=== PATIENT | male | born 1975 | race Caucasian/White ===

== ENCOUNTER 2016-03-24 07:54 | Outpatient (CLI) | payer MEDICAID ==
[~2016-03-24] VITALS: Ht 188 cm; Wt 118.2 kg
--- NOTE | ~2016-03-24 | HEMODYNAMI ---
PATIENT:ANDREA GREEN MEDICAL RECORD: [id number] : 79 LOCATION:DFRANSICO ADMISSION DATE: 03/24/16 Generatedon:03/24/201611:12 Patient name: ANDREA GREEN Patient #: [id number] SSN: [id number] : 1975 Date of study: 03/24/2016 Page: Of Hemodynamic Procedure Report Patient Data Patient Demographics Procedure consent was obtained First Name: ANDREA Gender: Male Last Name: PETER : 1975 Middle Initial: L Age: 40 year(s) Patient #: [id number] Race: Unknown SSN: [id number] Additional ID: [id number] Contact details Address: [address] [place] [address] State: [place]: [facility] [place] Zip code: [address] Past Medical History Allergies: No known allergies Admission Admission Data Admission Date: 03/24/2016 Admission Time: 7:54 Arrival Date: 03/24/2016 Arrival Time: 0:00 Admit Source: Other Insurance Payor: Private health insurance Height (in.): 72 BSA: 2.48 (m2) Height (cm.): 182.88 BMI: 38.92 (kg/m2) Weight (lbs.): 287 Weight (kg.): 130.18 Lab Results Lab Result Date: 03/24/2016 Lab Result Time: 0:00 Biochemistry Name Units Result Min Max BUN mg/dl 11 --(-*--)-- 7 18 Creatinine mg/dl 0.8 --(-*--)-- 0.6 1.3 CBC Name Units Result Min Max Hemoglobin g/dl 17 --(---*)-- 13.5 17.5 Procedure Procedure Types Cath Procedure Diagnostic Procedure LHC LHC w/Coronaries Procedure Description Procedure Date Procedure Date: 03/24/2016 Procedure Start Time: 11:02 Procedure End Time: 11:11 Procedure Staff Name Function Don Chavis MD Performing Physician Consuelo Richard RT Scrub Luisa Ward RN Nurse Pedrito Rios RT Refractive Surgeon Luz Putnam RT Monitor Procedure Data Cath Procedure Fluoroscopy Diagnostic fluoroscopy Total fluoroscopy Time: 2.6 time: 2.6 min min Diagnostic fluoroscopy Total fluoroscopy dose: dose: 200.14 mGy 200.14 mGy Contrast Material Contrast Material Type Amount (ml) Isovue 300 51 Entry Location Entry Primary Successful Side Size Upsize Upsize Entry Closure Miller ccessful Closure Location (Fr) 1 (Fr) 2 (Fr) Remarks Device Remarks Radial Right 6 Fr Mechanical artery Short Compression Estimated blood loss: 10 ml Diagnostic catheters Device Type Used For End Catheter Placement Terumo 5Fr [place] 110cm Procedure catheter Procedure Complications No complications Procedure Medications Medication Administration Route Dosage Oxygen NC 2 l/min Heparin Flush Bag added to field 2 bags (1000units/500ml NS) Lidocaine 2% added to field 20 Radial Cocktail added to field 1 syringe (Verapomil 2mg/Nitro 400mcg/Heparin 1500units) Versed I.V. 1 mg Fentanyl I.V. 50 mcg Versed I.V. 1 mg Fentanyl I.V. 50 mcg Versed I.V. 1 mg Fentanyl I.V. 50 mcg Versed I.V. 1 mg Fentanyl I.V. 50 mcg Radial Cocktail I.A. 1 syringe (Verapomil 2mg/Nitro 400mcg/Heparin 1500units) Versed I.V. 1 mg Fentanyl I.V. 50 mcg Versed I.V. 1 mg Fentanyl I.V. 50 mcg Fentanyl I.V. 50 mcg Hemodynamics Rest BSA: 2.48 (m2) HGB: 17 (g/dl) O2 Consumption: Estimated: 329.2 (ml/min) O2 Consu mption indexed: Estimated:132.74 (ml/min/m) Heart Rate: 96 (bpm) Snapshots Pre Cath Intra NCS Post Cath Vital Signs Time Heart Resp SPO2 NIBP (mmHg) Rhythm Pain Sedation Rate (ipm) (%) Status Level (bpm) 10:43:53 94 21 98 125/87(104) NSR 0 (11) 10(A) , No pain 10:48:18 97 25 98 127/75(103) NSR 0 (11) 10(A) , No pain 10:52:42 96 16 96 120/79(96) NSR 0 (11) 10(A) , No pain 10:57:08 98 16 95 117/66(87) NSR 0 (11) 10(A) , No pain 11:01:33 107 16 95 102/66(89) NSR 0 (11) 10(A) , No pain 11:05:57 106 16 95 94/53(74) NSR 0 (11) 10(A) , No pain 11:10:13 110 17 96 102/59(87) NSR 0 (11) 10(A) , No pain Medications Time Medication Route Dose Verified Delivered Reason Notes Effectiveness by by 10:45:44 Oxygen NC 2 l/min Don Luisa Per Partha Ward RN physician 10:45:53 Heparin Flush added 2 bags Don Don used for Bag to Partha Chavis MD procedure (1000units/500ml field NS) 10:46:00 Lidocaine 2% added 20ml Dondelfina Ochoa used for to vial Partha Chavis MD procedure field 10:46:06 Radial Cocktail added 1 Don Don used for (Verapomil to syringe Partha Chavis MD procedure 2mg/Nitro field 400mcg/Heparin 1500units) 10:51:43 Versed I.V. 1 mg Don Luisa for sedation Partha Ward RN 10:51:48 Fentanyl I.V. 50 mcg Don Luisa for sedation Partha Ward RN 10:53:50 Versed I.V. 1 mg Don Luisa for sedation Partha Ward RN 10:53:52 Fentanyl I.V. 50 mcg Don Luisa for sedation Partha Ward RN 10:56:28 Versed I.V. 1 mg Don Luisa for sedation Partha Ward RN 10:56:40 Fentanyl I.V. 50 mcg Don Luisa for sedation Partha Ward RN 10:58:54 Versed I.V. 1 mg Don Luisa for sedation Partha Ward RN 10:58:57 Fentanyl I.V. 50 mcg Don Luisa for sedation Partha Ward RN 11:00:06 Versed I.V. 1 mg Don Luisa for sedation Partha Ward RN 11:00:13 Fentanyl I.V. 50 mcg Don Luisa for sedation Partha Ward RN 11:02:09 Radial Cocktail I.A. 1 Don Ochoa for (Verapomil syringe Partha Chavis MD vasodilation 2mg/Nitro 400mcg/Heparin 1500units) 11:03:38 Versed I.V. 1 mg Don Luisa for sedation Partha Ward RN 11:03:40 Fentanyl I.V. 50 mcg Don Luisa for sedation Partha Ward RN 11:05:44 Fentanyl I.V. 50 mcg Don Luisa for sedation Partha Ward glove cutter Log Time Note 10:29:55 Patient Height : 182.88 inches 10:30:03 Patient Weight : 130.18 lbs 10:30:03 Admit Source: Other 10:30:20 Insurance Payor : Private health insurance 10:30:22 Arrival Date: 03/24/2016 12:00:00 AM 10:31:07 Diagnostic Cath Status : Elective 10:32:11 Pedrito ADAME(R) sent for patient. Start room use. 10:32:13 Time tracking: Regular hours 10:32:23 Plan of Care:Hemodynamics will remain stable., Cardiac rhythm will remain stable., Comfort level will be maintained., Respiratory function will remain adequate., Patient/ family verbilizes understanding of procedure., Procedure tolerated without complication., Recovers from procedure without complications.. 10:32:40 Patient received from Outpatients to [facility] 3 Alert and oriented. Tansferred to table in Supine position. 10:32:42 Warm blankets applied, and katie hugger turned on for patient comfort. 10:32:43 Correct patient and procedure confirmed by team. 10:32:45 Signed procedure consent form obtained from patient. 10:34:51 Lab Result : Hemoglobin 17 g/dl 10:34:51 Lab Result : Creatinine 0.8 mg/dl 10:34:51 Lab Result : BUN 11 mg/dl 10:40:14 H&P Date Dictated: 03/03/2016 Within 30 days and on chart., H&P Addendum completed by physician on day of procedure. (MUST COMPLETE FOR ALL OUTPATIENTS). 10:40:19 Family in waiting room. 10:40:22 Patient NPO since Midnight. 10:40:38 Patient allergic to No known allergies 10:40:43 Is patient on blood thinner?Yes 10:40:46 ACC The patient was administered the following blood thiners within the last 24 hours: ACCPlavix 10:42:37 Vital chart was started 10:44:45 Baseline sample Acquired. 10:44:48 Rhythm: sinus rhythm 10:44:50 Full Disclosure recording started 10:44:51 Pre-procedure instructions explained to patient. 10:44:52 Pre-op teaching completed and patient verbalized understanding. 10:44:55 Is the patient allergic to Iodine/contrast media? No. 10:44:59 Patient diabetic? No. 10:45:03 Previous problem with sedation/anesthesia? No ? 10:45:05 Snore? Yes 10:45:06 Sleep apnea? No 10:45:07 Deviated septum? No 10:45:08 Opens mouth fully? Yes 10:45:09 Sticks out tongue? Yes 10:45:11 Airway obstruction? No ? 10:45:14 Dentures? No ? 10:45:17 Pre procedure: right dorsailis pedis pulse 2+ Normal; easily identifiable; not easily obliterated 10:45:20 Modified Irving's test Ulnar < 7 seconds 10:45:22 Patient pain scale 0/10 ?. 10:45:27 IV patent on arrival in left hand with 0.9% NaCl at [facility]. 10:45:31 Lab results completed and on chart. 10:45:35 Right Radial & Right Groin area was prepped with chlora-prep and draped in sterile fashion 10:45:35 Alarms reviewed by R. N. 10:45:36 Sharps counted by scrub and verified by R.N. 10:45:38 Use device set Radial Dx 10:45:40 Acist Syringe opened to sterile field. 10:45:40 Cardinal Cath Pack opened to sterile field. 10:45:40 Bag Decanter opened to sterile field. 10:45:41 Terumo 6Fr Slender Glidesheath opened to sterile field. 10:45:41 St Wilfredo 260cm J .035 wire opened to sterile field. 10:45:42 Acist Hand Control opened to sterile field. 10:45:42 Acist Manifold opened to sterile field. 10:45:43 Tegaderm 4 x 4 opened to sterile field. 10:45:44 Oxygen 2 l/min NC was given by Luisa Ward RN; Per physician; 10:45:53 Heparin Flush Bag (1000units/500ml NS) 2 bags added to field was given by Don Chavis MD; used for procedure; 10:46:00 Lidocaine 2% 20ml vial added to field was given by Don Chavis MD; used for procedure; 10:46:06 Radial Cocktail (Verapomil 2mg/Nitro 400mcg/Heparin 1500units) 1 syringe added to field was given by Don Chavis MD; used for procedure; 10:49:53 Physician paged 10:51:09 Physician arrived 10:51:10 --------ALL STOP TIME OUT------ 10:51:12 Final Timeout: patient, procedure, and site verified with staff and physician. All members of the team are in agreement. 10:51:15 Right Radial & Right Groin site verified by team. 10:51:20 Physical assessment completed. ASA score P 2 - A patient with mild systemic disease as per Don Chavis MD. 10:51:30 Sedation plan: IV Moderate Sedation Versed, Fentanyl 10:51:43 Versed 1 mg I.V. was given by Luisa Ward RN; for sedation; 10:51:48 Fentanyl 50 mcg I.V. was given by Luisa Ward RN; for sedation; 10:53:50 Versed 1 mg I.V. was given by Luisa Ward RN; for sedation; 10:53:52 Fentanyl 50 mcg I.V. was given by Luisa Ward RN; for sedation; 10:56:28 Versed 1 mg I.V. was given by Luisa Ward RN; for sedation; 10:56:40 Fentanyl 50 mcg I.V. was given by Luisa Ward RN; for sedation; 10:58:54 Versed 1 mg I.V. was given by Luisa Ward RN; for sedation; 10:58:57 Fentanyl 50 mcg I.V. was given by Luisa Ward RN; for sedation; 11:00:06 Versed 1 mg I.V. was given by Luisa Ward RN; for sedation; 11:00:13 Fentanyl 50 mcg I.V. was given by Luisa Ward RN; for sedation; 11:01:54 Procedure started. 11:02:07 Local anesthetic to right radial artery with Lidocaine 2% by Don Chavis MD.INITIAL ACCESS ONLY 11:02:09 Radial Cocktail (Verapomil 2mg/Nitro 400mcg/Heparin 1500units) 1 syringe I.A. was given by Don Chavis MD; for vasodilation; 11:02:17 A 6 Fr Short sheath was inserted into the Right Radial artery 11:03:10 J wire advanced. 11:03:36 LV angiography performed. 11:03:38 Versed 1 mg I.V. was given by Luisa Ward RN; for sedation; 11:03:40 Fentanyl 50 mcg I.V. was given by Luisa Ward RN; for sedation; 11:03:47 LV Function : Normal 11:03:53 EF : 60 % 11:04:38 A Terumo 5Fr [place] 110cm catheter was advanced over the wire and used for Procedure. 11:05:05 LCA angiography performed. 11:05:09 RCA angiography performed. 11:05:44 Fentanyl 50 mcg I.V. was given by Luisa Ward RN; for sedation; 11:06:09 Medtronic Launcher 5Fr EBU 3.5 guide catheter opened to sterile field. 11:06:43 LCA angiography performed. 11:07:25 Terumo TR Band Large opened to sterile field. 11:07:50 Catheter removed. 11:08:37 Sheath removed intact; hemostasis achieved with Mechanical Compression to the Right Radial artery. 11:08:44 Procedure ended.(Physican Out) 11:09:28 Fluoroscopy time 02.60 minutes. 11:09:35 Fluoroscopy dose: 200.14 mGy 11:09:35 Flurop Dose total: 200.14 11:09:53 Contrast amount:Isovue 300 51ml. 11:09:56 Sharps counted by scrub and verified by R.N. 11:10:00 TR band inflated with 10cc of air. 11:10:03 Insertion/operative site no bleeding no hematoma. 11:10:14 Post right radial artery:stable 11:10:16 Post Procedure Pulses reassessed and unchanged 11:10:20 Post procedure rhythm: unchanged. 11:10:23 Estimated blood loss: 10 ml 11:10:25 Post procedure instruction explained to patient.Patient verbalizes understanding. 11:10:26 Patient needs reinforcement of post procedure teaching. 11:10:33 Procedure and supply charges have been captured, reviewed, submitted and are correct. 11:10:53 Procedure Complication : No complications 11:10:56 Vital chart was stopped 11:10:58 See physician's report for complete and final results. 11:10:59 Report given to Outpatients. 11:11:03 Patient transfered to Outpatients with Stretcher. 11:11:05 Procedure ended. 11:11:05 Full Disclosure recording stopped 11:11:09 End room use (Document Last) Device Usage Item Name Manufacture Quantity Catalog Hospital Part Current Minimal Lot# / Number Charge Number Stock Stock Serial# Code Acist Acist 1 59907 [id number] 488084 [id number] 20 Syringe [employer] Cardinal Cardinal 1 [id number] 558005 01864 208466 5 Cath Pack Health Bag Microtek 1 2002S 667730 57447 801978 5 [employer] Terumo 6Fr Terumo 1 [id number] 038722 583371 968758 [address] Wilfredo 1 [id number] 189304 500521 426816 30 260cm J .035 wire Acist Hand Acist 1 11756 938370 684584 420460 5 Control [employer] Inc Acist Acist 1 76648 943385 812668 386272 5 Manifold Medical [employer] Inc Tegaderm 4 3M 1 1626W 016039 104630 992503 5 x 4 Terumo 5Fr Terumo 1 40-0513 967407 307438 132787 5 [place] 110cm catheter Medtronic Medtronic 1 [id number] 607706 538237 591176 1 Launcher 5Fr EBU 3.5 guide catheter Terumo TR Terumo 1 [id number] 058884 966889 40 Band Large Signature Audit [place] Stage Time Signature Unsigned Intra-Procedure 03/24/2016 Luz Putnam 11:12:01 AM RT(R) Signatures Monitor : Luz Putnam Signature : RT Date : Time : [address] [place] [address]
[2016-03-24] MEDS ORDERED: ZESTRIL20 MG PO (08:14)
[2016-03-24] MEDS ORDERED: PLAVIX75 MG PO (08:15)
[2016-03-24] MEDS ORDERED: CELEXA40 MG PO (08:15)
[2016-03-24 08:22] VITALS: BP 148/96; Ht 188 cm; Wt 118.2 kg
[2016-03-24 08:29] LABS: BASOPHILS 0.6 % (0.0-2.0); EOSINOPHILS 4.8 % (0-7); LYMPHOCYTES 28.3 % (15-50); MCH 32.4 pg (26.0-34.0); MCHC 34.7 g/dL (31.0-37.0); MCV 93.5 fL (80.0-100.0); MONOCYTES 6.1 % (2-11); NEUTROPHILS 59.2 % (40-80); PLATELET COUNT 201 10x3/uL (130-400); RBC 5.24 10x6/uL (4.20-6.10); RDW 14.4 % (11.5-14.5); WBC 7.8 10x3/uL (4.8-10.8)
[2016-03-24 08:36] LABS: CALC OSMOLALITY 275 mosm/kg (275-300); CALCIUM 9.2 mg/dL (8.5-10.1); CARBON DIOXIDE 28.7 mmol/L (21.0-32.0); CHLORIDE - SERUM 102 mmol/L (98-107); CREATININE - SERUM 0.8 mg/dL (0.6-1.3); GLUCOSE 81 mg/dL (74-106); POTASSIUM - SERUM 4.1 mmol/L (3.5-5.1); SODIUM 139 mmol/L (136-145); UREA NITROGEN 11 mg/dL (7-18); eGFR NON AFRICAN AMERICAN > 90 mL/min (90-120)
--- NOTE | 2016-03-24 11:42 | NUR ---
TR BAND TO R/WRIST CDI NO BLEEDING NO HEMATOMA NOTED. VSS WITH CHEST PAIN DENIED.
--- NOTE | 2016-03-24 12:12 | NUR ---
CHEST PAIN DENIED WITH TR BAND TO R/WRIST CDI NO BLEEDING NO HEMATOMA NOTED. VSS SANDWICH AND SODA TO BEDSIDE WILL MONITOR
--- NOTE | 2016-03-24 12:28 | NUR ---
SANDWICH AND SODA TO BEDSIDE WITH CHEST PAIN DENIED. TR BAND REMAINS CDI NO BLEEDING NO HEMATOMA NOTED. REPOSITIONED TO SITTING WITH HOB UP 30 DEGREES
--- NOTE | 2016-03-24 12:49 | NUR ---
4 CC AIR REMOVED FROM TR BAND WITH NO BLEEDING NOTED. PIV REMOVED FROM LEFT ARM WITH DRESSING APPLIED. PATIENT UP TO GET DRESSED FOR DISCHARGE HOME CHEST PAIN DENIED
--- NOTE | 2016-03-24 13:00 | NUR ---
TR BAND REMOVED WITH NO BLEEDING NO HEMATOMA NOTED. VERBAL AND WRITTEN DISCHARGE INSTRUCTIONS GONE OVER WITH PATIENT LEFT VIA WC TO FRONT FOR FAMILY TO TRANSPORT HOME
--- NOTE | 2016-03-27 13:59 | OP ---
PATIENT NAME: ANDREA GREEN MEDICAL RECORD: [id number] :79 LOCATION:D.CAT ADMISSION DATE: SURGEON: SCOTT FERNANDEZ MD DATE OF OPERATION: 03/24/2016 PROCEDURES: 1. Left heart catheterization. 2. Selective coronary angiography. 3. Left ventriculogram. INDICATION: Chest pain compatible with angina. PROCEDURE IN DETAIL: After informed consent was obtained and after detailed explanation of risks, benefits as well as alternative therapies, the patient elected to proceed with angiogram and heart catheterization. The right radial area was prepped and draped in normal sterile fashion. The right radial artery was cannulated via modified Seldinger technique with placement of 5-Kyrgyz sheath. All catheters exchanged through this sheath. FINDINGS: The left ventriculogram was performed in standard 30-degree COOPER view, reveals good cardiac wall motion throughout all segments. Overall ejection fraction estimated 60%. SELECTIVE CORONARY ANGIOGRAPHY: Left main, left anterior descending, left circumflex, and right coronary artery are all smooth-walled vessels with no angiographic evidence of coronary artery disease. OVERALL IMPRESSION: 1. No angiographic evidence of coronary artery disease. 2. Normal left heart pressures. 3. Normal left ventricular systolic function. Chest pain is noncardiac in etiology. No further cardiac workup needs to be ascertained. TRANSINT:[id number] Voice Confirmation ID: [id number] DOCUMENT ID: [id number] SCOTT FERNANDEZ MD at 1359 CC: [id number] DICTATION DATE: 03/24/16 1112 TELECOMMUNICATION LINES REPAIRER: 03/24/16 1146 DEP CLI 03/24/[address] [address]
[2016-05-07] MEDS ORDERED: [UNRECOGNIZED DRUG - REMARK] (11:43)
== END 2016-03-24 13:03 | disposition home or self-care (01) ==
LOC: D.CATH 07:54 → D.OPS 10:00 → D.CATH 10:00
PROVIDERS: Internal Medicine Interventional Cardiology
DX: R07.89 Other chest pain (principal)

== ENCOUNTER 2016-05-08 05:28 | Day surgery (SDC) | payer MEDICAID ==
[2016-05-07 12:12] LABS: HEMATOCRIT 51.6 % (42.0-54.0); HEMOGLOBIN 18.1 g/dL (13.5-17.5); MCH 32.7 pg (26.0-34.0); MCHC 35.1 g/dL (31.0-37.0); MCV 93.3 fL (80.0-100.0); MEAN PLATELET VOLUME 10.5 fL (7.4-10.4); RBC 5.53 10x6/uL (4.20-6.10); RDW 13.9 % (11.5-14.5); WBC 10.1 10x3/uL (4.8-10.8)
[~2016-05-08] VITALS: Ht 188 cm; Wt 122.5 kg
[~2016-05-08 05:28] MED LIST: CELEXA40 MG PO; PLAVIX75 MG PO; ZESTRIL20 MG PO; [UNRECOGNIZED DRUG - REMARK]
[2016-05-08 08:01] VITALS: BP 147/92; Ht 188 cm; Wt 122.5 kg
[2016-05-08] MEDS ORDERED: HYDROCODONE-APA1 TAB PO (11:02)
--- NOTE | 2016-05-08 12:21 | NUR ---
IV DC WITH CATHER TIP INTACT
--- NOTE | 2016-05-12 13:10 | OP ---
PATIENT NAME: ANDREA GREEN MEDICAL RECORD: [id number] :79 LOCATION:AARON ADMISSION DATE: SURGEON: AHSAN PARADA MD DATE OF OPERATION: 05/08/2016 PREOPERATIVE DIAGNOSES: 1. Rotator cuff tear of the left shoulder. 2. Impingement syndrome of the left shoulder. 3. Acromioclavicular arthritis of the left shoulder. POSTOPERATIVE DIAGNOSES: 1. Rotator cuff tear of the left shoulder. 2. Impingement syndrome of the left shoulder. 3. Acromioclavicular arthritis of the left shoulder. PROCEDURES: 1. Arthroscopic rotator cuff repair of the left shoulder. 2. Arthroscopic distal clavicle of the left shoulder done through separate incision -- 1 cm. 3. Arthroscopic subacromial decompression, acromioplasty, and bursectomy. SURGEON: Ahsan Parada MD. ANESTHESIA: General. INTRAOPERATIVE COMPLICATIONS: None. SUMMARY OF PATHOLOGIC FINDINGS: There is a full thickness rotator cuff tear consistent the preoperative diagnosis. Furthermore, the patient had a profound impingement, subacromial bursitis, and acromioclavicular arthritis. OPERATIVE SUMMARY IN DETAIL: After obtaining the appropriate preoperative orthopedic surgery consent as well as anesthetic consultation, evaluation and clearance, the patient was brought to the operating room and placed on the operating table in supine position. After general laryngeal mask was administered, the patient was placed in a right lateral decubitus position. All pressure points were well padded to include down leg peroneal pad as well as axillary roll. The patient was held firmly to the operating table using the vacuum pack suction system. Left upper extremity and shoulder were then prepped and draped in routine sterile fashion. The arm was held in the Arthrex traction boom at 30 degrees of forward flexion, 30 degrees of abduction with 10 pounds of traction laterally. Arthroscopy was established in the glenohumeral joint from a posterior portal. Anterior portal was established in the anterior safe interval. Diagnostic arthroscopy revealed the patient had the above findings. Gentle labral debridement was followed by a transarthroscopic rotator cuff tear portal being created. The rotator cuff tear on the articular side was taken down and the articular aspect of the supraspinatus tendinous footprint was debrided back to bleeding cancellous bone. Attention was then turned to the subacromial space. While in the subacromial space, [place] tissue ablation system was utilized to denude the undersurface of the acromion of all soft tissue elements. A 5-0 barrel aniceto was used to perform acromioplasty at the level of acromioclavicular joint and the coracoacromial ligament was released. Through a separate anterior arthroscopic portal, the distal clavicle was approached and debrided for 1 cm using the 5-0 barrel aniceto. Having completed this, attention was turned to the rotator cuff tear itself. A single #2 OPERATIVE REPORT [id number] ANDREA GREEN FiberTape was passed in inverted mattress fashion and anchored laterally with a 4.75 SwiveLock from Arthrex. Having completed this, arthroscopy portals were closed in routine interrupted fashion using 4-0 Prolene. Sterile dressings were applied. The patient was awakened and taken to the recovery room in stable condition. All final needle and sponge counts were correct. TRANSINT:[id number] Voice Confirmation ID: [id number] DOCUMENT ID: [id number] TAL RICHARDSON, AHSAN OTERO at 1310 CC: [id number] DICTATION DATE: 05/08/16 1105 LATHE SET UP OPERATOR: 05/08/16 1300 [facility] 05/08/16 [id number] [place] [address]
== END 2016-05-08 12:30 | disposition home or self-care (01) ==
LOC: D.OPS 05:28 → D.PAN 09:00 → D.OPS 09:00 → D.PAN 10:45 → D.OPS 12:30
PROVIDERS: Anesthesiology
DX: M75.122 Complete rotator cuff tear or rupture of left shoulder, not specified as traumatic (principal); M75.42 Impingement syndrome of left shoulder; M13.812 Other specified arthritis, left shoulder; M75.52 Bursitis of left shoulder

== ENCOUNTER 2016-06-04 19:09 | Emergency (ER) | payer MEDICAID ==
[2016-05-08 08:01] VITALS: BMI 34.7
[~2016-06-04 19:09] MED LIST changes: +HYDROCODONE-APA1 TAB PO
== END 2016-06-04 20:50 | disposition home or self-care (01) ==
LOC: D.ER 19:09
DX: S93.401A Sprain of unspecified ligament of right ankle, initial encounter (principal); X58.XXXA Exposure to other specified factors, initial encounter; Y93.89 Activity, other specified; Y92.89 Other specified places as the place of occurrence of the external cause; F41.9 Anxiety disorder, unspecified; F17.200 Nicotine dependence, unspecified, uncomplicated

== ENCOUNTER 2017-08-03 16:55 | Observation (INO) | payer MEDICARE ==
[~2017-08-03] VITALS: Ht 188 cm; Wt 138.4 kg
--- NOTE | ~2017-08-03 | OP ---
PATIENT NAME: ANDREA GREEN MEDICAL RECORD: [id number] :79 LOCATION:D.M2 D.0 ADMISSION DATE:08/03/17 SURGEON: SCOTT FERNANDEZ MD DATE OF OPERATION: 08/04/2017 DATE OF SERVICE: 08/04/2017 PROCEDURES: 1. Left heart catheterization. 2. Selective coronary angiography. 3. Left ventriculogram. PROCEDURE IN DETAIL: After informed consent was obtained and after a detailed description of the risks, benefits as well as alternative therapies, the patient elected to proceed with angiogram and heart catheterization. The right radial area was prepped and draped in normal sterile fashion. Right radial artery was cannulated via modified Seldinger technique with placement of 6-Italian sheath. All catheters exchanged through this sheath. FINDINGS: Left ventriculogram was performed in standard 30-degree COOPER view, reveals good cardiac wall motion throughout all segments. Overall ejection fraction estimated at 60%. SELECTIVE CORONARY ANGIOGRAPHY: Left main, left anterior descending, left circumflex, right coronary artery are all smooth-walled vessels with no angiographic evidence of coronary artery disease. OVERALL IMPRESSION: 1. No angiographic evidence of coronary artery disease. 2. Normal left heart pressures. 3. Normal left ventricular systolic function. Chest pain is noncardiac in etiology. Center medical management and treatment of hypertension and tachycardia. TRANSINT:[id number] Voice Confirmation ID: [id number] DOCUMENT ID: [id number] SCOTT FERNANDEZ MD at 1710 CC: [id number] DICTATION DATE: 08/04/17 1115 PICKERS MATERIAL HANDLERS: 08/04/17 1208 DIS IN 08/04/17 [address] [place] [address]
--- NOTE | ~2017-08-03 | HEMODYNAMI ---
PATIENT:ANDREA GREEN MEDICAL RECORD: [id number] : 79 [id number] ADMISSION DATE: 08/03/17 Generatedon:08/04/201711:16 Patient name: ANDREA GREEN Patient #: [id number] SSN: [id number] : 1975 Date of study: 08/04/2017 Page: Of Hemodynamic Procedure Report Patient Data Patient Demographics Procedure consent was obtained First Name: ANDREA Gender: Male Last Name: PETER : 1975 Middle Initial: KATIE Age: 41 year(s) Patient #: [id number] Race: Unknown SSN: [id number] Additional ID: [id number] Contact details Address: [address] [place] [address] State: [place] City: [facility] Zip code: [address] Past Medical History Allergies: No known allergies Admission Admission Data Admission Date: 08/03/2017 Admission Time: 17:35 Room #: D.2120 Procedure Procedure Types Cath Procedure Diagnostic Procedure LHC LHC w/Coronaries Procedure Description Procedure Date Procedure Date: 08/04/2017 Procedure Start Time: 11:06 Procedure End Time: 11:12 Procedure Staff Name Function Don Chavis MD Performing Physician Consuelo Richard RT Monitor Luz Putnam RT Scrub Liza Webster RN Nurse Procedure Data Cath Procedure Fluoroscopy Diagnostic fluoroscopy Total fluoroscopy Time: 1.1 time: 1.1 min min Diagnostic fluoroscopy Total fluoroscopy dose: 483 dose: 483 mGy mGy Contrast Material Contrast Material Type Amount (ml) Isovue 300 29 Entry Location Entry Primary Successful Side Size Upsize Upsize Entry Closure Miller ccessful Closure Location (Fr) 1 (Fr) 2 (Fr) Remarks Device Remarks Radial Right 5 Fr Mechanical artery Compression Estimated blood loss: 5 ml Diagnostic catheters Device Type Used For End Catheter Placement DIAGNOSTIC Layton 110cm 5 Multi-vessel Fr catheter ([id number]) Angiography Procedure Complications No complications Procedure Medications Medication Administration Route Dosage Oxygen NC 2 l/min Lidocaine 2% added to field 20 Heparin Flush Bag added to field 2 bags (1000units/500ml NS) 0.9% NaCl I.V. 100 ml/hr Versed I.V. 2 mg Fentanyl I.V. 100 mcg Radial Cocktail I.A. 1 syringe (Verapomil 2mg/Nitro 400mcg/Heparin 1500units) Versed I.V. 2 mg Fentanyl I.V. 100 mcg Fentanyl I.V. 50 mcg Hemodynamics Rest Heart Rate: 82 (bpm) Pressure Samples Time Site Value (mmHg) Purpose Heart Use Rate(bpm) 11:08 LV 7/-24,-48 Snapshot 95 Snapshots Pre Cath Intra NCS Post Cath Vital Signs Time Heart Resp SPO2 etCO2 NIBP (mmHg) Rhythm Pain Sedation Rate (ipm) (%) (mmHg) Status Level (bpm) 11:00:31 88 30 99 43.5 141/93(105) NSR 0 (11) 10(A) , No pain 11:04:43 83 19 97 39.8 130/83(108) NSR 0 (11) 10(A) , No pain 11:09:01 92 18 96 41.3 112/63(94) NSR 0 (11) 9(A) , No pain 11:12:59 93 19 96 45.8 126/70(87) NSR 0 (11) 10(A) , No pain Medications Time Medication Route Dose Verified Delivered Reason Notes Effectiveness by by 11:02:21 Oxygen NC 2 l/min Don De Jesus used for Partha Webster RN procedure 11:02:28 Lidocaine 2% added 20ml Don Ochoa for local to vial Partha Chavis MD anesthetic field 11:02:36 Heparin Flush added 2 bags Don Ochoa used for Bag to Partha Chavis MD procedure (1000units/500ml field NS) 11:02:46 0.9% NaCl I.V. 100 Dondelfina Blevinsie Per ml/hr Partha Webster RN physician 11:03:00 Versed I.V. 2 mg Don Blevinsie for sedation Partha Webster RN 11:03:06 Fentanyl I.V. 100 mcg Don De Jesus for sedation Partha Webster RN 11:07:03 Versed I.V. 2 mg Don Blevinsie for sedation Partha Webster RN 11:07:08 Fentanyl I.V. 100 mcg Don De Jesus for sedation Partha Webster RN 11:08:43 Radial Cocktail I.A. 1 Don Ochoa for (Verapomil syringe Partha Chavis MD vasodilation 2mg/Nitro 400mcg/Heparin 1500units) 11:09:47 Fentanyl I.V. 50 mcg Don De Jesus for sedation Partha Webster RN Procedure Log Time Note 10:30:13 Luz Putnam RT(R) sent for patient. Start room use. 10:48:36 Diagnostic Cath Status : Elective 10:49:14 Time tracking: Regular hours (M-F 7:00 - 5:00) 10:49:18 Plan of Care:Hemodynamics will remain stable., Cardiac rhythm will remain stable., Comfort level will be maintained., Respiratory function will remain adequate., Patient/ family verbilizes understanding of procedure., Procedure tolerated without complication., Recovers from procedure without complications.. 10:49:40 Patient received from Med II to CCL 2 Alert and oriented. Tansferred to table in Supine position. 10:49:41 Warm blankets applied, and katie hugger turned on for patient comfort. 10:49:41 Correct patient and procedure confirmed by team. 10:49:42 Signed procedure consent form obtained from patient. 10:49:43 ECG and BP/O2 sat monitors applied to patient. 10:59:32 Vital chart was started 10:59:33 Baseline sample Acquired. 10:59:38 Rhythm: sinus tachycardia 10:59:40 Full Disclosure recording started 10:59:43 H&P Date Dictated: 08/04/2017 New H&P dictated by physician.. 10:59:45 Pre-procedure instructions explained to patient. 10:59:45 Pre-op teaching completed and patient verbalized understanding. 10:59:47 Family in waiting room. 10:59:48 Patient NPO since Midnight. 10:59:54 Is the patient allergic to Iodine/contrast media? No. 10:59:55 Was the patient premedicated? No 10:59:56 Is patient on blood thinner?No 10:59:57 Patient diabetic? No. 10:59:59 Previous problem with sedation/anesthesia? No ? 11:00:01 Snore? Yes 11:00:02 Sleep apnea? No 11:00:02 Deviated septum? No 11:00:03 Opens mouth fully? Yes 11:00:04 Sticks out tongue? Yes 11:00:05 Airway obstruction? No ? 11:00:08 Dentures? No ? 11:01:17 Pre procedure: right dorsailis pedis pulse 1+ Palpable, but thready & weak; easily obliterated 11:01:21 Patient pain scale 0/10 ?. 11:01:28 IV patent on arrival in right wrist with 0.9% NaCl at [facility]. 11:01:31 Lab results completed and on chart. 11:01:35 Right Radial & Right Groin area was prepped with chlora-prep and draped in sterile fashion 11:01:35 Alarms reviewed by R. N. 11:01:36 Sharps counted by scrub and verified by R.N. 11:01:37 Physician arrived 11:01:38 --------ALL STOP TIME OUT------ 11:01:38 Final Timeout: patient, procedure, and site verified with staff and physician. All members of the team are in agreement. 11:01:40 Right Radial & Right Groin site verified by team. 11:01:43 Physical assessment completed. ASA score P 2 - A patient with mild systemic disease as per Don Chavis MD. 11:01:47 Sedation plan: IV Moderate Sedation Medication:Versed, Fentanyl 11:01:50 Use device set Radial Dx or PCI 11:01:51 ACIST Syringe (02835) opened to sterile field. 11:01:51 Medline Cath Pack ([id number]) opened to sterile field. 11:01:52 Bag Decanter () opened to sterile field. 11:01:52 DIAGNOSTIC WIRE .035 260cm J wire (053141) opened to sterile field. 11:01:52 ACIST Hand Control (33562) opened to sterile field. 11:01:53 ACIST Manifold (43243) opened to sterile field. 11:01:54 Tegaderm 4 x 4 (1626W) opened to sterile field. 11:01:55 MBrace Wrist Support ([id number]) opened to sterile field. 11:01:56 SHEATH 6Fr Prelude Radial ([id number]) opened to sterile field. 11:02:21 Oxygen 2 l/min NC was administered by Liza Webster RN; used for procedure; 11::28 Lidocaine 2% 20ml vial added to field was administered by Don Chavis MD; for local anesthetic; 11::36 Heparin Flush Bag (1000units/500ml NS) 2 bags added to field was administered by Don Chavis MD; used for procedure; 11:02:46 0.9% NaCl 100 ml/hr I.V. was administered by Liza Webster RN; Per physician; 11:03:00 Versed 2 mg I.V. was administered by Liza Webster RN; for sedation; ::06 Fentanyl 100 mcg I.V. was administered by Liza Webster RN; for sedation; 11:05:44 Procedure started. 11::52 Zero performed for pressure channel P1 ::06 Local anesthetic to right radial artery with Lidocaine 2% by Don Chavis MD.INITIAL ACCESS ONLY 11:06:16 A 5 Fr sheath was inserted into the Right Radial artery 11:07:03 Versed 2 mg I.V. was administered by Liza Webster RN; for sedation; ::06 A DIAGNOSTIC Layton 110cm 5 Fr catheter ([id number]) was advanced over the wire and used for Multi-vessel Angiography. 11:07:08 Fentanyl 100 mcg I.V. was administered by Liza Webster RN; for sedation; 11:08:43 Radial Cocktail (Verapomil 2mg/Nitro 400mcg/Heparin 1500units) 1 syringe I.A. was administered by Don Chavis MD; for vasodilation; 11:08:58 LV hemodynamics recorded. 11:08:59 LV gram done using COOPER 11::01 Injector settings: Ml/sec: 5, Volume: 15, 11::06 EF : 60 % 11:09:30 RCA angiography performed. 11:09:32 Injector settings: Ml/sec: 3, Volume: 6, 11:09:47 Fentanyl 50 mcg I.V. was administered by Liza Webster RN; for sedation; 11::02 LCA angiography performed. 11:11:05 Injector settings: Ml/sec: 3, Volume: 6, 11:11:10 Catheter removed. 11:11:11 TR BAND Large ([id number]) opened to sterile field. 11:11:22 Sheath removed intact; hemostasis achieved with Mechanical Compression to the Right Radial artery. 11:11:24 Procedure ended.(Physican Out) 11:12:03 Fluoroscopy time 01.10 minutes. 11:12:07 Fluoroscopy dose: 483 mGy 11:12:07 Flurop Dose total: 483 11:12:11 Contrast amount:Isovue 300 29ml. 11:12:13 Sharps counted by scrub and verified by R.N. 11:12:15 Insertion/operative site no bleeding no hematoma. 11:12:18 TR band inflated with 10cc of air. 11:12:22 Post right radial artery:stable 11:12:23 Post Procedure Pulses reassessed and unchanged 11:12:27 Post procedure rhythm: unchanged. 11:12:29 Estimated blood loss: 5 ml 11:12:30 Post procedure instruction explained to patient.Patient verbalizes understanding. 11:12:31 Patient needs reinforcement of post procedure teaching. 11:12:39 Procedure and supply charges have been captured, reviewed, submitted and are correct. 11:12:43 Procedure Complication : No complications 11:12:45 Vital chart was stopped 11:12:46 See physician's report for complete and final results. 11:12:48 Report given to Med II. 11:12:51 Patient transfered to Med II with Stretcher. 11:12:54 Procedure ended. 11:12:54 Full Disclosure recording stopped 11:12:57 End room use (Document Last) Device Usage Item Name Manufacture Quantity Catalog Number Hospital Part Current M inimal Lot# / Charge Number Stock Stock Serial# Code ACIST Syringe Acist 1 86722 [id number] 841727 019908 2 0 (29682) [employer] Medline Cath Cardinal 1 [id number] 408679 60874 051008 5 Pack Health ([id number]) Bag Decanter Microtek 1 2001S 389738 29211 669999 5 () [employer] Inc. DIAGNOSTIC WIRE St Wilfredo 1 769829 490775 248669 005605 3 0 .035 260cm J wire (402094) ACIST Hand Acist 1 11171 761163 050168 066942 5 Control (88820) [employer] ACIST Manifold Acist 1 29919 871588 909095 652325 5 (76065) [employer] Tegaderm 4 x 4 3M 1 1626W 889495 024702 812952 5 (1626W) MBrace Wrist Advanced 1 140-0250-00 183008 90309 269298 5 Support Vascular ([id number]) Dynamics SHEATH 6Fr Merit 1 [id number] 083023 555985 190212 5 Prelude Radial Medical ([id number]) DIAGNOSTIC Terumo 1 40-0916 336250 209496 417331 5 Layton 110cm 5 Fr catheter (945259) TR BAND Large Terumo 1 [id number] 756073 726133 535594 4 0 ([id number]) Signature Audit [place] Stage Time Signature Unsigned Intra-Procedure 08/04/2017 Consuelo Richard 11:16:13 AM RT(R) Signatures Monitor : Consuelo Richard RT Signature : Date : Time : [facility] [address] [place] [address]
[2017-08-03] MEDS ORDERED: NORCO 7.5/325 T1 TA1 PO (18:06)
[2017-08-03] MEDS ORDERED: ZANAFLEX4 MG PO (18:07)
[2017-08-03 18:40] VITALS: BP 140/89; Ht 188 cm; Wt 138.4 kg
[2017-08-03 19:00] LABS: BASOPHILS 0.4 % (0-2); EOSINOPHILS 4.3 % (0-7); HEMATOCRIT 44.5 % (42.0-54.0); HEMOGLOBIN 15.2 g/dL (13.5-17.5); IMMATURE GRANULOCYTES 0.4 % (0-5); LYMPHOCYTES 23.8 % (15-50); MCH 32.7 pg (26.0-34.0); MCHC 34.2 g/dL (31.0-37.0); MCV 95.7 fL (80.0-100.0); MEAN PLATELET VOLUME 10.4 fL (7.4-10.4); MONOCYTES 7.9 % (2-11); NEUTROPHILS 63.2 % (40-80); PLATELET COUNT 205 10x3/uL (130-400); RBC 4.65 10x6/uL (4.20-6.10); WBC 8.4 10x3/uL (4.8-10.8)
[2017-08-03 19:32] LABS: ALBUMIN 3.5 g/dL (3.4-5.0); ALKALINE PHOSPHATASE 78 U/L (46-116); ALT (SGPT) 47 U/L (10-68); BILIRUBIN - TOTAL 0.33 mg/dL (0.2-1.3); CALC OSMOLALITY 286 mosm/kg (275-300); CALCIUM 8.5 mg/dL (8.5-10.1); CARBON DIOXIDE 28.5 mmol/L (21.0-32.0); CHLORIDE - SERUM 107 mmol/L (98-107); CKMB 0.8 U/L (0.0-3.6); CREATINE KINASE 113 UL (21-232); CREATININE - SERUM 0.9 mg/dL (0.6-1.3); GLUCOSE 90 mg/dL (74-106); POTASSIUM - SERUM 4.5 mmol/L (3.5-5.1); PROTEIN - SERUM 6.5 g/dL (6.4-8.2); SODIUM 144 mmol/L (136-145); UREA NITROGEN 13 mg/dL (7-18); eGFR NON AFRICAN AMERICAN > 90 mL/min (90-120)
[2017-08-03 19:35] LABS: TROPONIN-I < 0.017 ng/mL (0.000-0.060)
[2017-08-03] MEDS ORDERED: CELEXA20 MG PO (19:37)
[2017-08-03 20:00] VITALS: BP 168/108
[2017-08-04] VITALS: BP 142/88
[2017-08-04 00:45] LABS: CKMB 0.7 U/L (0.0-3.6); CREATINE KINASE 89 UL (21-232)
[2017-08-04 00:47] LABS: TROPONIN-I < 0.017 ng/mL (0.000-0.060)
[2017-08-04 06:17] VITALS: BP 144/93
[2017-08-04 06:21] LABS: BASOPHILS 0.4 % (0-2); EOSINOPHILS 5.8 % (0-7); HEMATOCRIT 42.5 % (42.0-54.0); HEMOGLOBIN 14.4 g/dL (13.5-17.5); IMMATURE GRANULOCYTES 0.2 % (0-5); LYMPHOCYTES 30.3 % (15-50); MCH 32.3 pg (26.0-34.0); MCHC 33.9 g/dL (31.0-37.0); MCV 95.3 fL (80.0-100.0); MEAN PLATELET VOLUME 10.1 fL (7.4-10.4); NEUTROPHILS 58.3 % (40-80); PLATELET COUNT 185 10x3/uL (130-400); RBC 4.46 10x6/uL (4.20-6.10); RDW 13.9 % (11.5-14.5); WBC 8.4 10x3/uL (4.8-10.8)
[2017-08-04 06:55] LABS: ALBUMIN 3.4 g/dL (3.4-5.0); ALKALINE PHOSPHATASE 58 U/L (46-116); ALT (SGPT) 39 U/L (10-68); CALC OSMOLALITY 273 mosm/kg (275-300); CALCIUM 8.1 mg/dL (8.5-10.1); CARBON DIOXIDE 27.5 mmol/L (21.0-32.0); CHLORIDE - SERUM 105 mmol/L (98-107); CREATINE KINASE 87 UL (21-232); CREATININE - SERUM 0.8 mg/dL (0.6-1.3); GLUCOSE 84 mg/dL (74-106); PROTEIN - SERUM 6.3 g/dL (6.4-8.2); SODIUM 138 mmol/L (136-145); TROPONIN-I < 0.017 ng/mL (0.000-0.060); UREA NITROGEN 10 mg/dL (7-18); eGFR NON AFRICAN AMERICAN > 90 mL/min (90-120)
[2017-08-04 07:07] LABS: POTASSIUM - SERUM 3.7 mmol/L (3.5-5.1)
[2017-08-04 07:41] VITALS: BP 161/99
[2017-08-04] MEDS ORDERED: TOPROL XL50 MG PO (14:09)
== END 2017-08-04 16:48 | disposition home or self-care (01) ==
LOC: D.M2 16:55 → OBSVTIME 17:35 → D.M2 17:35
PROVIDERS: Family Medicine
DX: R07.89 Other chest pain (principal); I10 Essential (primary) hypertension; K21.9 Gastro-esophageal reflux disease without esophagitis; E78.00 Pure hypercholesterolemia, unspecified; F17.200 Nicotine dependence, unspecified, uncomplicated; E66.9 Obesity, unspecified; Z68.39 Body mass index [BMI] 39.0-39.9, adult

== ENCOUNTER 2017-11-19 08:50 | Emergency (ER) | payer OTHER ==
[~2017-11-19] VITALS: Ht 188 cm; Wt 127.3 kg
[~2017-11-19 08:50] MED LIST changes: +CELEXA20 MG PO; +NORCO 7.5/325 T1 TA1 PO; +TOPROL XL50 MG PO; +ZANAFLEX4 MG PO
[2017-11-19 08:53] VITALS: Ht 188 cm; Wt 127.3 kg
[2017-11-19] MEDS ORDERED: LISINOPRIL10 MG PO (08:54)
[2017-11-19] MEDS ORDERED: VOLTAREN25 MG PO (08:54)
[2017-11-19] MEDS ORDERED: AXIRON30 MG/1.5 TP (08:55)
[2017-11-19 09:30] LABS: ALBUMIN 3.4 g/dL (3.4-5.0); ALKALINE PHOSPHATASE 62 U/L (46-116); ALT (SGPT) 25 U/L (10-68); BILIRUBIN - TOTAL 0.47 mg/dL (0.2-1.3); CALC OSMOLALITY 275 mosm/kg (275-300); CALCIUM 8.6 mg/dL (8.5-10.1); CARBON DIOXIDE 31.3 mmol/L (21.0-32.0); CHLORIDE - SERUM 104 mmol/L (98-107); GLUCOSE 106 mg/dL (74-106); POTASSIUM - SERUM 3.7 mmol/L (3.5-5.1); PROTEIN - SERUM 6.7 g/dL (6.4-8.2); SODIUM 139 mmol/L (136-145); UREA NITROGEN 7 mg/dL (7-18); eGFR NON AFRICAN AMERICAN 88 mL/min (90-120)
[2017-11-19 09:32] LABS: BASOPHILS 0.3 % (0-2); EOSINOPHILS 3.7 % (0-7); HEMATOCRIT 47.3 % (42.0-54.0); HEMOGLOBIN 16.3 g/dL (13.5-17.5); IMMATURE GRANULOCYTES 0.2 % (0-5); LYMPHOCYTES 21.8 % (15-50); MCH 31.6 pg (26.0-34.0); MCHC 34.5 g/dL (31.0-37.0); MCV 91.7 fL (80.0-100.0); MONOCYTES 4.1 % (2-11); NEUTROPHILS 69.9 % (40-80); RBC 5.16 10x6/uL (4.20-6.10); RDW 12.9 % (11.5-14.5); WBC 10.3 10x3/uL (4.8-10.8)
[2017-11-19 09:44] LABS: PLATELET COUNT 241 10x3/uL (130-400)
[2017-11-19 09:50] LABS: APPEARANCE HAZY (CLEAR); BACTERIA FEW /hpf (NONE SEEN); BILIRUBIN NEGATIVE (NEGATIVE); COLOR YELLOW (YELLOW); EPITHELIAL CELLS 0-5 /hpf (0-5); GLUCOSE NEGATIVE (NEGATIVE); KETONE NEGATIVE (NEGATIVE); NITRITE NEGATIVE (NEGATIVE); PROTEIN NEGATIVE (NEGATIVE); RED CELLS - URINE 25-50 /hpf (0-5); UROBILINOGEN NORMAL (NORMAL)
[2017-11-19 09:51] LABS: MUCUS >1+ /lpf (NONE SEEN)
[2017-11-19 10:10] LABS: INR 0.95 (0.85-1.17); PROTIME 12.3 SECONDS (11.6-15.0)
[2017-11-19 12:04] VITALS: BP 143/96
== END 2017-11-19 12:07 | disposition other institution (70) ==
LOC: D.ER 08:50
PROVIDERS: Family Medicine
DX: N20.0 Calculus of kidney (principal); M54.5 Low back pain; I10 Essential (primary) hypertension; F17.200 Nicotine dependence, unspecified, uncomplicated

== ENCOUNTER → 2018-01-13 12:57 | Outpatient (CLI) | payer OTHER ==
[2017-11-19 08:53] VITALS: BMI 36.0
[~2018-01-13 12:57] MED LIST changes: +AXIRON30 MG/1.5 TP; +LISINOPRIL10 MG PO; +VOLTAREN25 MG PO
== END | disposition home or self-care (01) ==
LOC: D.US 12-14 14:30
DX: R60.0 Localized edema (principal)

== ENCOUNTER 2018-06-06 12:44 | Emergency (ER) | payer MEDICAID ==
[~2018-06-06] VITALS: Ht 188 cm; Wt 127.3 kg
[2018-06-06 13:14] VITALS: Ht 188 cm; Wt 127.3 kg
[2018-06-06 13:42] LABS: BASOPHILS 0.3 % (0-2); EOSINOPHILS 6.8 % (0-7); HEMATOCRIT 44.8 % (42.0-54.0); HEMOGLOBIN 15.3 g/dL (13.5-17.5); IMMATURE GRANULOCYTES 0.2 % (0-5); LYMPHOCYTES 30.7 % (15-50); MCH 29.9 pg (26.0-34.0); MCHC 34.2 g/dL (31.0-37.0); MCV 87.5 fL (80.0-100.0); MEAN PLATELET VOLUME 10.5 fL (7.4-10.4); MONOCYTES 4.5 % (2-11); NEUTROPHILS 57.5 % (40-80); PLATELET COUNT 264 10x3/uL (130-400); RBC 5.12 10x6/uL (4.20-6.10); RDW 13.4 % (11.5-14.5); WBC 5.8 10x3/uL (4.8-10.8)
[2018-06-06 13:47] LABS: APPEARANCE CLEAR (CLEAR); BILIRUBIN NEGATIVE (NEGATIVE); COLOR STRAW (YELLOW); GLUCOSE NEGATIVE (NEGATIVE); KETONE NEGATIVE (NEGATIVE); NITRITE NEGATIVE (NEGATIVE); PROTEIN NEGATIVE (NEGATIVE)
[2018-06-06 13:48] LABS: BACTERIA FEW /hpf (NONE SEEN); CALCIUM OXALATE CRYSTALS 0-5 /hpf (NONE SEEN); EPITHELIAL CELLS 0-5 /hpf (0-5); MUCUS <1+ /lpf (NONE SEEN)
[2018-06-06 13:59] LABS: ALBUMIN 3.4 g/dL (3.4-5.0); ALKALINE PHOSPHATASE 85 U/L (46-116); ALT (SGPT) 34 U/L (10-68); BILIRUBIN - TOTAL 0.46 mg/dL (0.2-1.3); C-REACTIVE PROTEIN 0.4 mg/dL (0.0-0.9); CALC OSMOLALITY 287 mosm/kg (275-300); CALCIUM 8.8 mg/dL (8.5-10.1); CARBON DIOXIDE 31.8 mmol/L (21.0-32.0); CHLORIDE - SERUM 108 mmol/L (98-107); CREATININE - SERUM 0.8 mg/dL (0.6-1.3); GLUCOSE 124 mg/dL (74-106); POTASSIUM - SERUM 3.6 mmol/L (3.5-5.1); PROTEIN - SERUM 6.8 g/dL (6.4-8.2); SODIUM 145 mmol/L (136-145); UREA NITROGEN 7 mg/dL (7-18); eGFR NON AFRICAN AMERICAN > 90 mL/min (90-120)
[2018-06-06] MEDS ORDERED: TORADOL10 MG PO (16:11)
[2018-06-06 16:57] VITALS: BP 142/93
== END 2018-06-06 16:57 | disposition home or self-care (01) ==
LOC: D.ER 12:44
PROVIDERS: Family Medicine
DX: M79.89 Other specified soft tissue disorders (principal); I10 Essential (primary) hypertension; I25.10 Atherosclerotic heart disease of native coronary artery without angina pectoris

== ENCOUNTER 2019-06-30 00:41 | Emergency (ER) | payer OTHER ==
[~2019-06-30] VITALS: Ht 188 cm; Wt 129.5 kg
[~2019-06-30 00:41] MED LIST changes: +TORADOL10 MG PO
[2019-06-30 00:53] VITALS: Ht 188 cm; Wt 129.5 kg
[2019-06-30 02:32] VITALS: BP 133/88
== END 2019-06-30 02:05 | disposition home or self-care (01) ==
LOC: D.ER 00:41
DX: S16.1XXA Strain of muscle, fascia and tendon at neck level, initial encounter (principal); S50.819A Abrasion of unspecified forearm, initial encounter; S39.012A Strain of muscle, fascia and tendon of lower back, initial encounter; I10 Essential (primary) hypertension; V89.2XXA Person injured in unspecified motor-vehicle accident, traffic, initial encounter; Y93.9 Activity, unspecified; Y92.9 Unspecified place or not applicable

== ENCOUNTER 2019-11-04 13:23 | Emergency (ER) | payer MEDICAID ==
[~2019-11-04] VITALS: Ht 188 cm; Wt 135.1 kg
[2019-11-04 13:52] VITALS: BP 146/89; Ht 188 cm; Wt 135.1 kg
[2019-11-04] MEDS ORDERED: HYDROCODON-ACE1 EAC7 PO (15:57)
[2019-11-04] MEDS ORDERED: CYCLOBENZAPRINE5 MG PO (15:57)
== END 2019-11-04 16:47 | disposition home or self-care (01) ==
LOC: D.ER 13:23
DX: M25.512 Pain in left shoulder (principal); I10 Essential (primary) hypertension; Z95.5 Presence of coronary angioplasty implant and graft

== ENCOUNTER 2020-07-07 19:37 | Emergency (ER) | payer BC ==
[~2020-07-07] VITALS: Ht 188 cm; Wt 163.6 kg
[~2020-07-07 19:37] MED LIST changes: +CYCLOBENZAPRINE5 MG PO; +HYDROCODON-ACE1 EAC7 PO
[2020-07-07 19:43] VITALS: Ht 188 cm; Wt 163.6 kg
[2020-07-07 20:26] LABS: BASOPHILS 0.5 % (0-2); EOSINOPHILS 3.7 % (0-7); HEMOGLOBIN 14.7 g/dL (13.5-17.5); LYMPHOCYTES 17.2 % (15-50); MCH 28.7 pg (26.0-34.0); MCHC 33.5 g/dL (31.0-37.0); MCV 85.6 fL (80.0-100.0); MEAN PLATELET VOLUME 7.9 fL (7.4-10.4); MONOCYTES 4.6 % (2-11); PLATELET COUNT 303 10x3/uL (130-400); RBC 5.13 10x6/uL (4.20-6.10); WBC 10.5 10x3/uL (4.8-10.8)
[2020-07-07 20:31] LABS: CALC OSMOLALITY 275 mosm/kg (275-300); CALCIUM 8.9 mg/dL (8.5-10.1); CHLORIDE - SERUM 103 mmol/L (98-107); CREATININE - SERUM 0.9 mg/dL (0.6-1.3); GLUCOSE 100 mg/dL (74-106); POTASSIUM - SERUM 3.7 mmol/L (3.5-5.1); SODIUM 139 mmol/L (136-145); UREA NITROGEN 8 mg/dL (7-18); eGFR NON AFRICAN AMERICAN > 90 mL/min (90-120)
[2020-07-07 20:32] LABS: APTT 31.4 SECONDS (22.8-39.4); INR 1.07 (0.85-1.17); PROTIME 12.9 SECONDS (11.6-15.0)
[2020-07-07 20:48] LABS: ALBUMIN 3.5 g/dL (3.4-5.0); ALKALINE PHOSPHATASE 78 U/L (30-120); ALT (SGPT) 30 U/L (10-68); BILIRUBIN - TOTAL 1.15 mg/dL (0.2-1.3); CKMB 2.2 U/L (0.0-3.6); CREATINE KINASE 160 UL (21-232); TROPONIN-I < 0.017 ng/mL (0.000-0.060)
--- NOTE | 2020-07-07 21:50 | NUR ---
DR RUBIO NOTIFIED AND REVIEWED PT's BEHAVIOR AND ASSESSMENT RESULTS. PT IS ALOW RISK PER DR RUBIO. DR RUBIO STATED TO GIVE RESOURCES TO PT AT TIME OF DISCHARGE. NO FURTHER ORDERS AT THIS TIME. RESOURCES REVIEWED WITH PT AND HE VERBALIZED UNDERSTANDING.
[2020-07-07 22:21] VITALS: BP 148/89
== END 2020-07-07 22:18 | disposition home or self-care (01) ==
LOC: D.ER 19:37
PROVIDERS: Student in an Organized Health Care Education/Training Program
DX: R51.9 Headache, unspecified (principal); R03.0 Elevated blood-pressure reading, without diagnosis of hypertension; I10 Essential (primary) hypertension; Z72.0 Tobacco use; R42 Dizziness and giddiness; R53.1 Weakness